=== PATIENT | female | born 1960 | race Caucasian/White ===

== ENCOUNTER → 2018-12-09 | Outpatient (CLI) | payer BC ==
[~2018-12-09] MED LIST: AMOX250S10 PO; DEXAMETHASONE PO; FURO20TA4 PO; HYDR15SO6 PO; LOVA10TA PO; MULT-1029 PO; TERB250T10 PO; TETRACAINE LOLLIPOPS PO
--- NOTE | 2018-12-09 16:45 | Diagnostic Imaging Report ---
PROCEDURE: MRI left joint lower extremity without contrast. TECHNIQUE: Multiplanar, multisequence non contrast-enhanced MRI of the left lower extremity was accomplished. INDICATION: Left hip pain and catching. COMPARISON: None. FINDINGS: No acute fracture is seen in the pelvis or left hip. Subcortical cystlike changes are seen in the bilateral femoral heads, left greater than right, as well as many in the left acetabulum. No osteonecrosis is seen. No hip or sacroiliac joint effusion is seen. The left acetabular labrum is suboptimally evaluated in the absence of intra-articular contrast. No significant paralabral cysts are appreciated. The iliopsoas tendons appear intact bilaterally. There is mild tendinopathy about the gluteus medius tendons bilaterally, with low-grade partial tearing of the left gluteus medius tendon. The hamstring tendons appear intact. No muscular atrophy is seen. No soft tissue fluid collections or masses are seen. No lymphadenopathy or masses are seen in the pelvis. No free fluid is seen in the pelvis. IMPRESSION: 1. Moderate to marked degenerative changes in the left hip. 2. Mild tendinopathy with low-grade partial tear of the left gluteus medius tendon. Dictated by: Dictated on workstation # [id number]
== END ==
LOC: RAD 15:38
PROVIDERS: ATTEND Nurse Practitioner Family
DX: M16.12 Unilateral primary osteoarthritis, left hip (principal); M62.81 Muscle weakness (generalized); M67.854 Other specified disorders of tendon, left hip; S76.012A Strain of muscle, fascia and tendon of left hip, initial encounter
CPT/HCPCS: 73721